=== PATIENT | female | born 1990 | race American Indian/Alaskan Native ===

== ENCOUNTER 2017-09-13 11:54 | Emergency (ER) | payer SELFPAY ==
[2017-09-13] MEDS ORDERED: TYLENOL PO ONE (14:24)
--- NOTE | 2017-09-13 14:26 | Emergency Department Report ---
Blank Doc - Documentation Documentation: 26-year-old female presents complaining of suprapubic abdominal pain 4 days. Pain is sharp, intermittent, worse palpation and rated 10/10 in intensity. Patient complains of some mild vaginal discharge. She complains of diarrhea i.e. one loose stool per day for the last 4 days without fever, melena, or hematochezia. She is sexually active with one partner and does not use condoms. Denies dysuria. She states symptoms feel similar to when she had chlamydia in the past. UA, urine pending Tylenol ordered Mid-level level to evaluate and perform pelvic exam
[2017-09-13 14:53] LABS: Bacteria,Urine 2+ /HPF (Negative); Bilirubin,Urine NEG (Negative); Blood,Urine SM (Negative); Color,Urine Yellow (Yellow); HCG Qualitative,Urine Negative (Negative); Mucus,Urine 3+ /HPF; Protein,Urine <15 mg/dL mg/dL (Negative); Urobilinogen,Urine < 2.0 mg/dL (<2.0)
--- NOTE | 2017-09-13 17:05 | Emergency Department Report ---
ED Female HPI - General Chief complaint: Abdominal Pain Stated complaint: ABD PAIN Time Seen by Provider: 09/13/17 14:14 Source: patient Mode of arrival: Ambulatory Limitations: No Limitations - History of Present Illness Initial comments: This is a 26-year-old -[place] female who presents with suprapubic pain and vaginal discharge for 4 days. Patient reports vaginal discharge is white with fishy odor. She has not tried taking anything [id number]. Last menstrual period was 09/03/2017, 0. Pain is sharp, intermittent, worse palpation and rated 10/10 in intensity. Patient reports diarrhea once. Admits to possible risk of STD's with one partner unprotected. She is concerned her boyfriend gave her something. Denies dysuria, fever, nausea or vomiting, melena , or hematochezia. MD Complaint: vaginal discharge Onset/Timin -: days(s) Location: suprapubic Radiation: non-radiating Severity: mild Severity scale (0 -10): 3 Quality: cramping, aching Consistency: intermittent Improves with: none Worsens with: none Are you Now?: No Last Menstrual Period: 09/03/17 EDC: 06/10/18 Associated Symptoms: vaginal discharge, abdominal pain (bilateral lower abdominal pain). denies: vaginal bleeding, nausea/vomiting, fever/chills, headaches, loss of appetite, dysuria, hematuria, rash, seizure, shortness of breath, syncope, weakness - Related Data Sexually active: Yes : 0 Para: 0 A: 0 Previous Rx's Medication Instructions Recorded Last Taken Type metroNIDAZOLE [Metronidazole] 500 mg PO BID 7 Days #14 tablet 09/13/17 Unknown Rx Allergies Allergy/AdvReac Type Severity Reaction Status Date / Time No Known Allergies Allergy Verified 10/16/15 18:16 ED Review of Systems ROS: Stated complaint: ABD PAIN Other details as noted in HPI Constitutional: denies: chills, fever Respiratory: denies: cough, shortness of breath, wheezing Cardiovascular: denies: chest pain, palpitations Gastrointestinal: abdominal pain (bilateral lower abdominal pain). denies: nausea, vomiting, diarrhea, constipation, hematemesis, melena, hematochezia Genitourinary: discharge (white fishy smelling discharge). denies: urgency, dysuria, frequency, hematuria, abnormal menses, dyspareunia Neurological: denies: headache, weakness, paresthesias Psychiatric: denies: anxiety, depression ED Past Medical Hx - Past Medical History Previous Medical History?: Yes Additional medical history: chlamydia - Surgical History Past Surgical History?: No - Social History Smoking Status: Current Every Day Smoker Substance Use Type: None - Medications Home Medications: Home Medications Medication Instructions Recorded Confirmed Last Taken Type metroNIDAZOLE [Metronidazole] 500 mg PO BID 7 Days #14 tablet 09/13/17 Unknown Rx ED Physical Exam - General Limitations: No Limitations General appearance: alert, in no apparent distress - Respiratory Respiratory exam: Present: normal lung sounds bilaterally. Absent: respiratory distress - Cardiovascular Cardiovascular Exam: Present: regular rate, normal rhythm. Absent: systolic murmur, diastolic murmur, rubs, gallop - GI/Abdominal GI/Abdominal exam: Present: soft, normal bowel sounds. Absent: organomegaly, mass - External exam: Present: normal external exam. Absent: erythema, swelling, lesions, lacerations, ecchymosis, bleeding Speculum exam: Present: vaginal discharge (curdy white discharge). Absent: erythema, cervical discharge, vaginal bleeding, foreign body, laceration Bi-manual exam: Present: normal bi-manual exam. Absent: cervical motion tendernes, adnexal tenderness, adnexal mass, uterine enlargement, uterine tenderness - Neurological Exam Neurological exam: Present: alert, oriented X3 - Psychiatric Psychiatric exam: Present: normal affect, normal mood - Skin Skin exam: Present: warm, dry, intact, normal color. Absent: rash ED Course Vital Signs 09/13/17 09/13/17 12:09 14:43 Temperature 98.7 F Pulse Rate 86 Respiratory 16 18 Rate Blood Pressure 102/63 O2 Sat by Pulse 100 Oximetry ED Medical Decision Making - Medical Decision Making This is a 26-year-old -[place] female who presents with malodorous vaginal discharge and suprapubic pain for 4 days. Patient was examined by me. Vitals are stable and in no acute distress. Urinalysis, urine hCG, and GC, wet prep via pelvic exam obtained. Urinalysis and urine hCG negative or normal. Positive clue cells, no Trichomonas or yeast on wet prep. Start metronidazole 500 mg by mouth twice a day 7 days. Discharged home in stable condition. Discussed prevention options. F/U with PCP or Health Department. Critical care attestation.: If time is entered above; I have spent that time in minutes in the direct care of this critically ill patient, excluding procedure time. ED Disposition Clinical Impression: Bacterial vaginosis, Vaginal discharge Disposition: TO HOME OR SELFCARE Is pt being admited?: No Does the pt Need Aspirin: No Condition: Stable Instructions: Abdominal Pain (ED), Bacterial Vaginosis (ED) Additional Instructions: Avoid drinking alcohol while taking antibiotics and for 24 hours after completion. Continue safe sexual intercourse. Follow up with Primary Care Provider or health department. Prescriptions: metroNIDAZOLE [Metronidazole] 500 mg PO BID 7 Days #14 tablet Referrals: [facility] [Provider Group] - 3-5 Days [facility] [Provider Group] - 3-5 Days Forms: STI Treatment and Prevention Time of Disposition: 18:02 Print Language: MOHAWK
[2017-09-13 18:29] VITALS: BP 110/70
== END 2017-09-13 18:06 | disposition home or self-care (01) ==
LOC: ED 11:54
DX: N76.0 Acute vaginitis (principal); B96.89 Other specified bacterial agents as the cause of diseases classified elsewhere; F17.200 Nicotine dependence, unspecified, uncomplicated
CPT/HCPCS: 81001; 81025; 87210; 87591

== ENCOUNTER 2017-09-19 12:34 | Emergency (ER) | payer SELFPAY ==
[2017-09-19 12:49] VITALS: BP 120/71
[2017-09-19] MEDS ORDERED: TYLENOL ONE (13:08)
[2017-09-19] MEDS ORDERED: TYLENOL PO ONE (13:10)
--- NOTE | 2017-09-19 14:12 | Emergency Department Report ---
ED Chest Pain HPI - General Chief Complaint: Chest Pain Stated Complaint: RICH Time Seen by Provider: 09/19/17 14:05 Source: patient Mode of arrival: Ambulatory Limitations: No Limitations - History of Present Illness Initial Comments: Patient is 26 years old female with no significant past medical history patient presented to the ER complaining of right-sided chest pain as being over for 2 days associated with shortness of breath. Patient stated that she is doing a lot of lifting at her work. She denied any fever cough recently. No nausea no vomiting. No recent travel. MD Complaint: chest pain Severity scale (0 -10): 10 - Related Data Previous Rx's Medication Instructions Recorded Last Taken Type metroNIDAZOLE [Metronidazole] 500 mg PO BID 7 Days #14 tablet 09/13/17 Unknown Rx Allergies Allergy/AdvReac Type Severity Reaction Status Date / Time No Known Allergies Allergy Verified 10/16/15 18:16 Heart Score - HEART Score History: Slightly suspicious EKG: Normal Age: < 45 Risk factors: No known risk factors Troponin: < normal limit HEART Score: 0 - Critical Actions Critical Actions: 0-3 pts:0.9-1.7%risk of adverse cardiac event.Candidate for discharge ED Review of Systems ROS: Stated complaint: RICH Other details as noted in HPI Comment: All other systems reviewed and negative Constitutional: denies: chills, fever ENT: denies: throat pain Gastrointestinal: denies: abdominal pain, nausea, vomiting, diarrhea, constipation, hematemesis Musculoskeletal: denies: back pain Neurological: denies: headache ED Past Medical Hx - Past Medical History Previous Medical History?: No Additional medical history: chlamydia - Surgical History Past Surgical History?: No - Social History Smoking Status: Current Every Day Smoker Substance Use Type: Alcohol - Medications Home Medications: Home Medications Medication Instructions Recorded Confirmed Last Taken Type metroNIDAZOLE [Metronidazole] 500 mg PO BID 7 Days #14 tablet 09/13/17 Unknown Rx ED Physical Exam - General Limitations: No Limitations General appearance: alert, in no apparent distress - Head Head exam: Present: atraumatic, normocephalic, normal inspection - Eye Eye exam: Present: normal appearance - ENT ENT exam: Present: normal exam, normal orophraynx, mucous membranes moist - Respiratory Respiratory exam: Present: chest wall tenderness (right upper chest). Absent: normal lung sounds bilaterally, respiratory distress, wheezes, rales, rhonchi, stridor, accessory muscle use, decreased breath sounds, prolonged expiratory - Cardiovascular Cardiovascular Exam: Present: regular rate, normal rhythm, normal heart sounds - GI/Abdominal GI/Abdominal exam: Present: soft, normal bowel sounds. Absent: distended, tenderness, guarding, rebound, rigid, organomegaly, mass, bruit, pulsatile mass - Extremities Exam Extremities exam: Present: normal inspection, full ROM, normal capillary refill - Back Exam Back exam: Present: normal inspection, full ROM. Absent: tenderness, CVA tenderness (R), CVA tenderness (L), muscle spasm, paraspinal tenderness, vertebral tenderness, rash noted - Neurological Exam Neurological exam: Present: alert, oriented X3, CN II-XII intact, normal gait - Skin Skin exam: Present: warm, intact, normal color ED Course Vital Signs 09/19/17 12:44 Temperature 98.7 F Pulse Rate 85 Respiratory 18 Rate Blood Pressure 120/71 O2 Sat by Pulse 97 Oximetry ED Medical Decision Making - Lab Data Result diagrams: 09/19/17 14:52 09/19/17 14:52 - EKG Data -: EKG Interpreted by Id EKG shows normal: sinus rhythm Rate: normal - EKG Data Interpretation: no acute changes - Radiology Data Radiology results: report reviewed Referring Physician: TYLER CRUZ Patient Name: STEPH CASTORENA Date of : 1990 Sex: Female Report Date: 2017-09-19 Report Status: [place] [address] Cat Scan Report Signed Patient: STEPH CASTORENA MR#: [id number] : 1990 Acct:[id number] Age/Sex: 26 / F ADM Date: 09/19/17 Loc: ED Attending Dr: Ordering Physician: TYLER CRUZ Date of Service: 09/19/17 Procedure(s): CT angio chest Accession Number(s): [id number] cc: TYLER CRUZ FINAL REPORT EXAM: CT ANGIO CHEST HISTORY: CHEST PAIN WITH SOB COMPARISON: Chest x-ray from the same date. TECHNIQUE: Contiguous axial images were obtained. Additional sagittal and coronal reformatted images were obtained. Administration of IV contrast given per institution protocol. Images submitted for interpretation. Max intensity projection images. 100 cc Omnipaque 350. FINDINGS: Heart normal in size. Thoracic aorta normal in caliber. No acute dissection or rupture. No pulmonary embolus. No pathologically enlarged intrathoracic or axillary lymph nodes. Tracheobronchial tree is patent. No focal consolidation or pleural effusion. Thoracic vertebral body heights preserved. Calcification along the posterior margin of the disc at the T6-T7 level causes mild to moderate focal canal stenosis. Visualized upper abdomen is grossly unremarkable. IMPRESSION: No pulmonary embolus. Lungs are clear. Transcribed By: LMA Dictated By: RICCARDO KAUR MD Electronically Authenticated By: RICCARDO KAUR MD Signed Date/Time: 09/19/171710 DD/ 10 TD/TT: 09/19/171710 Critical care attestation.: If time is entered above; I have spent that time in minutes in the direct care of this critically ill patient, excluding procedure time. ED Disposition Clinical Impression: Chest pain, Shortness of breath, Costochondritis, acute Disposition: DC-01 TO HOME OR SELFCARE Is pt being admited?: No Condition: Stable Instructions: Chest Pain (ED), Costochondritis (ED) Referrals: [facility]IMARY [facility] [Primary Care Provider] - 3-5 Days
[2017-09-19 15:21] LABS: Basophils % (Auto) 0.4 % (0.0-1.8); Eosinophils # (Auto) 0.1 K/mm3 (0.0-0.4); Eosinophils % (Auto) 1.6 % (0.0-4.3); Hematocrit 33.8 % (30.3-42.9); Hemoglobin 10.9 gm/dl (10.1-14.3); Lymphocytes # (Auto) 1.1 K/mm3 (1.2-5.4); Lymphocytes % (Auto) 18.6 % (13.4-35.0); Mean Corpuscular HGB Conc 32 % (30-34); Mean Corpuscular Volume 76 fl (79-97); Monocytes # (Auto) 0.6 K/mm3 (0.0-0.8); Monocytes % (Auto) 10.7 % (0.0-7.3); Platelet Count 364 K/mm3 (140-440); Red Blood Count 4.48 M/mm3 (3.65-5.03); Red Cell Distribution Width 16.1 % (13.2-15.2)
[2017-09-19 15:31] LABS: Mean Corpuscular Hemoglobin 24 pg (28-32)
[2017-09-19 15:39] LABS: BUN/Creatinine Ratio 18; Blood Urea Nitrogen 11 mg/dL (7-17); Calcium 9.5 mg/dL (8.4-10.2); Hemolysis Index 0
--- NOTE | 2017-09-19 16:27 | XRay Report ---
FINAL REPORT EXAM: XR CHEST ROUTINE 2V HISTORY: chest pain COMPARISON: None available. FINDINGS:: Frontal and lateral views of the chest obtained. Cardiac silhouette is within normal limits. No focal consolidation or effusion. No pneumothorax. Visualized bony thorax is grossly intact. IMPRESSION:: No acute findings.
[2017-09-19 16:47] LABS: INR 1.04 (0.87-1.13)
--- NOTE | 2017-09-19 17:16 | Cat Scan Report ---
FINAL REPORT EXAM: CT ANGIO CHEST HISTORY: CHEST PAIN WITH SOB COMPARISON: Chest x-ray from the same date. TECHNIQUE: Contiguous axial images were obtained. Additional sagittal and coronal reformatted images were obtained. Administration of IV contrast given per institution protocol. Images submitted for interpretation. Max intensity projection images. 100 cc Omnipaque 350. FINDINGS: Heart normal in size. Thoracic aorta normal in caliber. No acute dissection or rupture. No pulmonary embolus. No pathologically enlarged intrathoracic or axillary lymph nodes. Tracheobronchial tree is patent. No focal consolidation or pleural effusion. Thoracic vertebral body heights preserved. Calcification along the posterior margin of the disc at the T6-T7 level causes mild to moderate focal canal stenosis. Visualized upper abdomen is grossly unremarkable. IMPRESSION: No pulmonary embolus. Lungs are clear.
== END 2017-09-19 17:42 | disposition home or self-care (01) ==
LOC: ED 12:34
DX: M94.0 Chondrocostal junction syndrome [Tietze] (principal); F17.200 Nicotine dependence, unspecified, uncomplicated
CPT/HCPCS: 36415; 71046; 71275; 80048; 84703; 85025; 85379; 85610; 85730; 93005; 93010; 99284; Q9967

== ENCOUNTER 2019-03-05 13:27 | Emergency (ER) | payer SELFPAY ==
[2019-03-05 13:38] VITALS: BP 114/71
--- NOTE | 2019-03-05 13:48 | Event Note ---
ED Screening Note Date of service: 03/05/19 Time: 13:43 ED Screening Note: This initial assessment/diagnostic orders/clinical plan/treatment(s) is/are subject to change based on patients health status, clinical progression and re- assessment by fellow clinical providers in the ED. Further treatment and workup at subsequent clinical providers discretion. Patient/guardian urged not to elope from the ED as their condition may be serious if not clinically assessed and managed. Initial orders include:
== END 2019-03-05 14:00 | disposition left against medical advice (07) ==
LOC: ED 13:27
DX: R06.02 Shortness of breath (principal); R11.0 Nausea; Z53.21 Procedure and treatment not carried out due to patient leaving prior to being seen by health care provider

== ENCOUNTER 2020-04-19 14:38 | Emergency (ER) | payer SELFPAY ==
[2020-04-19 14:45] VITALS: BP 109/67
[2020-04-19] MEDS ORDERED: HYOSCYAMINE SUBL 0.125 MG TAB SL ONE (14:45)
[2020-04-19] MEDS ORDERED: ONDANSETRON 4 MG ODT TAB PO ONE (14:45)
--- NOTE | 2020-04-19 14:53 | Emergency Department Report ---
ED General Adult HPI - General Chief complaint: Abdominal Pain Stated complaint: STOMACH ACHE PUI?: No Time Seen by Provider: 04/19/20 14:44 Source: patient Mode of arrival: Ambulatory Limitations: No Limitations - History of Present Illness Initial comments: 29-year-old otherwise healthy female presenting with chief complaint of left upper quadrant abdominal pain, nonradiating, gradual onset 3 days ago. She states that pain is intermittent. Reports nausea but denies vomiting, diarrhea, constipation, dysuria, vaginal discharge, bleeding, fever or any other symptoms. Pain is moderate at times, nothing really makes it worse or better. Denies any change in appetite. Denies food making it worse. - Related Data Previous Rx's Medication Instructions Recorded Last Taken Type metroNIDAZOLE [Metronidazole] 500 mg PO BID 7 Days #14 tablet 09/13/17 Unknown Rx Naproxen [Naprosyn] 500 mg PO BID #14 tablet 09/19/17 Unknown Rx Promethazine [Phenergan] 25 mg PO Q6HR PRN #20 tab 04/19/20 Unknown Rx Allergies Allergy/AdvReac Type Severity Reaction Status Date / Time No Known Allergies Allergy Verified 10/16/15 18:16 ED Review of Systems ROS: Stated complaint: STOMACH ACHE Other details as noted in HPI Comment: All other systems reviewed and negative Gastrointestinal: as per HPI ED Past Medical Hx - Past Medical History Previous Medical History?: No Additional medical history: chlamydia - Surgical History Past Surgical History?: No - Social History Smoking Status: Never Smoker Substance Use Type: None - Medications Home Medications: Home Medications Medication Instructions Recorded Confirmed Last Taken Type metroNIDAZOLE [Metronidazole] 500 mg PO BID 7 Days #14 tablet 09/13/17 Unknown Rx Naproxen [Naprosyn] 500 mg PO BID #14 tablet 09/19/17 Unknown Rx Promethazine [Phenergan] 25 mg PO Q6HR PRN #20 tab 04/19/20 Unknown Rx ED Physical Exam - General Limitations: No Limitations General appearance: alert, in no apparent distress - Head Head exam: Present: atraumatic, normocephalic - Eye Eye exam: Present: normal appearance - ENT ENT exam: Present: mucous membranes moist - Neck Neck exam: Present: normal inspection - Respiratory Respiratory exam: Present: normal lung sounds bilaterally. Absent: respiratory distress - Cardiovascular Cardiovascular Exam: Present: regular rate, normal rhythm. Absent: systolic murmur, diastolic murmur, rubs, gallop - GI/Abdominal GI/Abdominal exam: Present: soft, normal bowel sounds. Absent: distended, tenderness, guarding, rebound - Extremities Exam Extremities exam: Present: normal inspection - Back Exam Back exam: Present: normal inspection - Neurological Exam Neurological exam: Present: alert, oriented X3 - Psychiatric Psychiatric exam: Present: normal affect, normal mood - Skin Skin exam: Present: warm, dry, intact, normal color. Absent: rash ED Course Vital Signs 04/19/20 14:43 Temperature 98.1 F Pulse Rate 89 Respiratory 18 Rate Blood Pressure 109/67 O2 Sat by Pulse 99 Oximetry ED Medical Decision Making - Lab Data Result diagrams: 04/19/20 14:49 04/19/20 14:49 hCG qualitative is positive, hCG quantitative 96 - Medical Decision Making Patient reports abdominal pain for the past 3 days, stating that it is intermittent and nothing really makes it worse or better. On my exam heart sounds are normal, lungs are clear, abdomen is benign. She points to the left upper quadrant as source of pain however there is no significant tenderness noted on my examination. Differential diagnoses includes gastritis, IBS, constipation. There is no right upper quadrant or right lower quadrant tendern ess to suggest cholecystitis or appendicitis respectively. Labs, KUB ordered. Patient given Zofran and Levsin. test is positive, quantitative level added on and is 96. States last period was March 20. Ultrasound obtained to rule out any signs of ectopic though this is felt unlikely. Anticipate 2 to 3-day outpatient [facility] follow-up. Signed out to GENEVIEVE Montano for follow-up on ultrasound. - Differential Diagnosis Constipation, gastritis, IBS Critical care attestation.: If time is entered above; I have spent that time in minutes in the direct care of this critically ill patient, excluding procedure time. ED Disposition Clinical Impression: Positive blood test Abdominal pain Qualifiers: Abdominal location: unspecified location Qualified Code(s): R10.9 - Unspecified abdominal pain Disposition: TO HOME OR SELFCARE Is pt being admited?: No Condition: Good Instructions: Abdominal Pain (ED), Abdominal Pain During Prescriptions: Promethazine [Phenergan] 25 mg PO Q6HR PRN #20 tab PRN Reason: Nausea Referrals: DAY VENEGAS MD [Primary Care Provider] - 3-5 Days CHRISTOPHER DE JESUS MD [Staff Physician] - 3-5 Days
[2020-04-19 14:57] LABS: Basophils % (Auto) 0.7 % (0.0-1.8); Eosinophils # (Auto) 0.1 K/mm3 (0.0-0.4); Eosinophils % (Auto) 1.1 % (0.0-4.3); Hemoglobin 10.7 gm/dl (10.1-14.3); Lymphocytes # (Auto) 2.8 K/mm3 (1.2-5.4); Lymphocytes % (Auto) 38.9 % (13.4-35.0); Mean Corpuscular HGB Conc 32 % (30-34); Mean Corpuscular Volume 81 fl (79-97); Monocytes # (Auto) 0.7 K/mm3 (0.0-0.8); Monocytes % (Auto) 9.5 % (0.0-7.3); Platelet Count 271 K/mm3 (140-440); Red Blood Count 4.08 M/mm3 (3.65-5.03); Red Cell Distribution Width 14.7 % (13.2-15.2)
[2020-04-19 15:14] LABS: Alanine Aminotransferase 15 units/L (7-56); Albumin 4.5 g/dL (3.9-5); Blood Urea Nitrogen 8 mg/dL (7-17); Calcium 8.5 mg/dL (8.4-10.2); Hemolysis Index 3
[2020-04-19 15:16] LABS: BUN/Creatinine Ratio 13
--- NOTE | 2020-04-19 16:52 | Ultrasound Report ---
ULTRASOUND OBSTETRIC INDICATION: Pelvic pain. History of ectopic . Estimated clinical age of 4 weeks, 2 days. TECHNIQUE: Transabdominal and Transvaginal. COMPARISON: None available. FINDINGS: GESTATIONAL SAC: None seen. YOLK SAC: None seen. EMBRYO/FETUS: None seen. ADNEXA: A nonspecific questionable solid lesion is seen in the left ovary measuring 2.4 x 1.4 x 1.8 c m with peripheral color flow. No other significant abnormality. FREE FLUID: Small amount of free fluid along the cul-de-sac. ADDITIONAL FINDINGS: Posteriorly along the uterus is a mass measuring 4.5 x 4.7 x 5.2 cm I could repr esent a fibroid. IMPRESSION: 1. No intrauterine is visualized sonographically. 2. Questional solid lesion in the left ovary could represent a normal variation of ovary. Ectopic pre gnancy is a consideration. Please correlate with the clinical findings. Close clinical follow up is r ecommended. 3. Possible uterine fibroid as above. Signer Name: Jose Treviño MD Signed: 04/19/2020 4:47 PM Workstation Name: [id number]
== END 2020-04-19 17:13 | disposition home or self-care (01) ==
LOC: ED 14:38
DX: O26.891 Other specified pregnancy related conditions, first trimester (principal); R10.12 Left upper quadrant pain; Z32.01 Encounter for pregnancy test, result positive; Z79.899 Other long term (current) drug therapy
CPT/HCPCS: 36415; 76801; 76830; 80053; 83690; 84702; 84703; 85025

== ENCOUNTER 2020-05-07 18:17 | Emergency (ER) | payer SELFPAY | END 2020-05-07 19:10 | disposition left against medical advice (07) | LOC: ED 18:17 | DX: R10.9 Unspecified abdominal pain (principal); Z53.21 Procedure and treatment not carried out due to patient leaving prior to being seen by health care provider ==

== ENCOUNTER 2020-05-08 09:11 | Emergency (ER) | payer SELFPAY ==
--- NOTE | 2020-05-08 09:29 | Event Note ---
ED Screening Note ED Screening Note: preg lmp 03/26 cramping hx ectopic This initial assessment/diagnostic orders/clinical plan/treatment(s) is/are subject to change based on patients health status, clinical progression and re- assessment by fellow clinical providers in the ED. Further treatment and workup at subsequent clinical providers discretion. Patient/guardian urged not to elope from the ED as their condition may be serious if not clinically assessed and managed. Initial orders include: ro ab/ectopic
[2020-05-08 10:35] LABS: Bilirubin,Urine NEG (Negative); Blood,Urine NEG (Negative); Color,Urine Yellow (Yellow); Mucus,Urine FEW /HPF; Urobilinogen,Urine < 2.0 mg/dL (<2.0)
--- NOTE | 2020-05-08 10:48 | Ultrasound Report ---
ULTRASOUND OBSTETRIC INDICATION: First trimester with cramping. TECHNIQUE: Transabdominal. COMPARISON: OB ultrasound from 04/19/2020. FINDINGS: GESTATIONAL SAC: Well-defined oval shape and intrauterine in location. YOLK SAC: No significant abnormality. EMBRYO/FETUS: No significant abnormality. - [place]ump Length = 0.6 cm = 6 weeks, 3 day(s). - Heart Rate = 120 beats per minute. ADNEXA: A previously described questionable solid lesion in the left ovary is not visualized. The pre viously described finding is consistent with variation of normal ovarian tissue. No other significant abnormality. FREE FLUID: None. ADDITIONAL FINDINGS: An unchanged pedunculated probable uterine fibroid is noted measuring 5.9 x 4.7 cm. IMPRESSION: 1. Single, living intrauterine with estimated sonographic age of 6 weeks, 3 day(s). 2. Additional findings as above. Signer Name: Jose Treviño MD Signed: 05/08/2020 10:43 AM Workstation Name: [id number]
--- NOTE | 2020-05-08 11:07 | Emergency Department Report ---
ED Female HPI - General Chief complaint: Abdominal Pain Stated complaint: 6 WKS CRAMPING Time Seen by Provider: 05/08/20 09:27 Source: patient Mode of arrival: Ambulatory Limitations: No Limitations - History of Present Illness Initial comments: Patient is a 29-year-old -[place] female that comes to the emergency room complaining of cramping. The cramping has occurred off and on for the last month. She denies any vaginal bleeding. She denies any vaginal discharge. Patient denies any abdominal pain, nausea vomiting or diarrhea. Patient denies any back pain. Patient denies any dysuria. She denies any fever or chills. She states that she is . Patient states she took a home test that was positive. She states her last menstrual cycle was 1-26. She has not had FUR TRAPPER care. This is her second . Her first resulted in an ectopic. Patient is ambulatory nontoxic and [id number] in triage. She is drinking a Coke upon triage. -: Gradual, week(s) Radiation: non-radiating Severity: mild Quality: cramping Consistency: intermittent Improves with: none Worsens with: none Are you Now?: Yes Associated Symptoms: denies other symptoms. denies: vaginal discharge, vaginal bleeding, abdominal pain, nausea/vomiting, fever/chills, headaches, loss of appetite, dysuria, hematuria, rash, seizure, shortness of breath, syncope, weakness - Related Data Sexually active: Yes : 2 Para: 0 A: 0 (1 ECTOPIC ) Previous Rx's Medication Instructions Recorded Last Taken Type metroNIDAZOLE [Metronidazole] 500 mg PO BID 7 Days #14 tablet 09/13/17 Unknown Rx Naproxen [Naprosyn] 500 mg PO BID #14 tablet 09/19/17 Unknown Rx Promethazine [Phenergan] 25 mg PO Q6HR PRN #20 tab 04/19/20 Unknown Rx Allergies Allergy/AdvReac Type Severity Reaction Status Date / Time No Known Allergies Allergy Verified 05/08/20 09:26 ED Review of Systems ROS: Stated complaint: 6 WKS CRAMPING Other details as noted in HPI Comment: All other systems reviewed and negative ED Past Medical Hx - Past Medical History Previous Medical History?: Yes Additional medical history: chlamydia/ECTOPIC - Surgical History Past Surgical History?: Yes - Family History Family history: no significant - Social History Smoking Status: Never Smoker Substance Use Type: None - Medications Home Medications: Home Medications Medication Instructions Recorded Confirmed Last Taken Type metroNIDAZOLE [Metronidazole] 500 mg PO BID 7 Days #14 tablet 09/13/17 Unknown Rx Naproxen [Naprosyn] 500 mg PO BID #14 tablet 09/19/17 Unknown Rx Promethazine [Phenergan] 25 mg PO Q6HR PRN #20 tab 04/19/20 Unknown Rx ED Physical Exam - General Limitations: No Limitations General appearance: alert, in no apparent distress - Head Head exam: Present: atraumatic, normocephalic - Eye Eye exam: Present: normal appearance - ENT ENT exam: Present: mucous membranes moist - Neck Neck exam: Present: normal inspection - Respiratory Respiratory exam: Present: normal lung sounds bilaterally. Absent: respiratory distress - Cardiovascular Cardiovascular Exam: Present: regular rate, normal rhythm. Absent: systolic murmur, diastolic murmur, rubs, gallop - GI/Abdominal GI/Abdominal exam: Present: soft, normal bowel sounds - Extremities Exam Extremities exam: Present: normal inspection - Back Exam Back exam: Present: normal inspection - Neurological Exam Neurological exam: Present: alert, oriented X3 - Psychiatric Psychiatric exam: Present: normal affect, normal mood - Skin Skin exam: Present: warm, dry, intact, normal color. Absent: rash ED Medical Decision Making - Lab Data Result diagrams: 05/08/20 10:52 05/08/20 10:52 - Radiology Data Radiology results: report reviewed, image reviewed - Medical Decision Making Labs 05/08/20 05/08/20 05/08/20 10:06 10:52 10:52 WBC 7.9 RBC 4.31 Hgb 11.1 Hct 34.7 MCV 80 MCH 26 L MCHC 32 RDW 14.4 Plt Count 271 Sodium 135 L Potassium 3.8 Chloride 99.8 Carbon Dioxide 25 Anion Gap 14 BUN 8 Creatinine 0.5 L Estimated GFR > 60 BUN/Creatinine Ratio 16 Glucose 83 Calcium 9.5 HCG, Quant Urine Color Yellow Urine Turbidity Slightly-cloudy Urine pH 8.0 H Ur Specific [place] 1.019 Urine Protein 30 mg/dl Urine Glucose (UA) Neg Urine Ketones Neg Urine Blood Neg Urine Nitrite Neg Urine Bilirubin Neg Urine Urobilinogen < 2.0 Ur Leukocyte Esterase Neg Urine WBC (Auto) 2.0 Urine RBC (Auto) 5.0 U Epithel Cells (Auto) 3.0 Urine Mucus Few 05/08/20 10:52 WBC RBC Hgb Hct MCV MCH MCHC RDW Plt Count Sodium Potassium Chloride Carbon Dioxide Anion Gap BUN Creatinine Estimated GFR BUN/Creatinine Ratio Glucose Calcium HCG, Quant 23166 H Urine Color Urine Turbidity Urine pH Ur Specific [place] Urine Protein Urine Glucose (UA) Urine Ketones Urine Blood Urine Nitrite Urine Bilirubin Urine Urobilinogen Ur Leukocyte Esterase Urine WBC (Auto) Urine RBC (Auto) U Epithel Cells (Auto) Urine Mucus Vital signs are normal as documented manually by the RN. Labs noted. UA noted. Ultrasound noted. Patient being discharged home with discharge plan of care including [facility] TRAPPER follow-up. She verbalizes understanding of this discharge plan. - Differential Diagnosis RO AB/ECTOPIC Critical care attestation.: If time is entered above; I have spent that time in minutes in the direct care of this critically ill patient, excluding procedure time. ED Disposition Clinical Impression: Disposition: DC-01 TO HOME OR SELFCARE Is pt being admited?: No Does the pt Need Aspirin: No Condition: Stable Instructions: First Trimester of , [id number], Abdominal Pain (ED) Additional Instructions: safe sex follow up with obgyn referral below Referrals: EDDA SAMANIEGO MD [Staff Physician] - 3-5 Days Time of Disposition: 11:06
[2020-05-08 11:09] LABS: Hematocrit 34.7 % (30.3-42.9); Hemoglobin 11.1 gm/dl (10.1-14.3); Mean Corpuscular HGB Conc 32 % (30-34); Mean Corpuscular Volume 80 fl (79-97); Platelet Count 271 K/mm3 (140-440); Red Blood Count 4.31 M/mm3 (3.65-5.03); Red Cell Distribution Width 14.4 % (13.2-15.2)
[2020-05-08 11:20] LABS: Blood Urea Nitrogen 8 mg/dL (7-17); Calcium 9.5 mg/dL (8.4-10.2); Hemolysis Index 32
[2020-05-08 11:22] LABS: BUN/Creatinine Ratio 16
== END 2020-05-08 11:13 | disposition home or self-care (01) ==
LOC: ED 09:11
DX: O26.891 Other specified pregnancy related conditions, first trimester (principal); R25.2 Cramp and spasm; Z3A.01 Less than 8 weeks gestation of pregnancy; Z79.899 Other long term (current) drug therapy
CPT/HCPCS: 36415; 76801; 80048; 81001; 84702; 85027

== ENCOUNTER 2020-12-03 13:53 | Outpatient (CLI) | payer OTHER ==
[2020-12-03] MEDS ORDERED: LACTATED RINGERS 1,000 ML IV ONE (14:32)
[2020-12-03 14:46] VITALS: BP 106/60
[2020-12-03 15:03] LABS: Bilirubin,Urine NEG (Negative); Blood,Urine NEG (Negative); Color,Urine Yellow (Yellow); Mucus,Urine 2+ /HPF; Protein,Urine <15 mg/dL mg/dL (Negative); Urobilinogen,Urine < 2.0 mg/dL (<2.0)
[2020-12-03 15:35] LABS: Amphetamine Screen,Urine Negative; Benzodiazepines Screen,Urine Negative; Cannabinoid Screen,Urine Negative; Cocaine Screen,Urine Negative; Methadone Screen,Urine Negative; Opiate Screen,Urine Negative
[2020-12-03] MEDS: TERBUTALINE 1 MG/1 ML INJ SUB-Q SCH ×2 (16:37→17:22)
[2020-12-03] MEDS ORDERED: LACTATED RINGERS 500 ML IV ONE (17:00)
[2020-12-03] MEDS ORDERED: ACETAMINOPHEN 500 MG TAB PO ONE (18:27)
== END 2020-12-03 18:30 | disposition home or self-care (01) ==
LOC: TRG 13:53 → APU 13:55 → TRG 18:30
PROVIDERS: ATTEND Obstetrics & Gynecology
DX: O62.9 Abnormality of forces of labor, unspecified (principal); O26.893 Other specified pregnancy related conditions, third trimester; R10.9 Unspecified abdominal pain; Z3A.36 36 weeks gestation of pregnancy
CPT/HCPCS: 59025; 80307; 81001; 96360; 96361; 96372; J3105; J7120